=== PATIENT | male | born 1930 | race Caucasian/White ===

== ENCOUNTER → 2019-12-08 | Outpatient (CLI) | payer OTHER, MEDICARE ==
[~2019-12-08] MED LIST: ALLOPURINOL 30300 M2 PO; ASPIR 8181 MG PO; ATORVASTATIN CA40 MG PO; BENAZEPRIL HCL20 MG PO; CELEXA20 MG PO; MOBIC7.5 MG PO; NORVASC5 MG PO; NOVOLIN N100 UNIT/1 SQ; NOVOLIN R100 UNIT/1 SQ; TRAMADOL 50 MG50 MG PO; VITAMIN B-12500 MCG PO; VITAMIN D1000 UNI1 PO
== END ==
LOC: SJCVC 13:40
DX: R00.1 Bradycardia, unspecified (principal); I25.10 Atherosclerotic heart disease of native coronary artery without angina pectoris; I48.0 Paroxysmal atrial fibrillation; E11.22 Type 2 diabetes mellitus with diabetic chronic kidney disease; I12.9 Hypertensive chronic kidney disease with stage 1 through stage 4 chronic kidney disease, or unspecified chronic kidney disease; N18.9 Chronic kidney disease, unspecified; I65.23 Occlusion and stenosis of bilateral carotid arteries; E78.5 Hyperlipidemia, unspecified; G47.33 Obstructive sleep apnea (adult) (pediatric); Z79.4 Long term (current) use of insulin

== ENCOUNTER → 2020-05-18 | Outpatient (CLI) | payer OTHER, MEDICARE | LOC: SJCVCIMAG 02-25 12:02 | PROVIDERS: ATTEND Internal Medicine | DX: I65.23 Occlusion and stenosis of bilateral carotid arteries (principal); R94.31 Abnormal electrocardiogram [ECG] [EKG]; I25.810 Atherosclerosis of coronary artery bypass graft(s) without angina pectoris; I48.0 Paroxysmal atrial fibrillation; E78.5 Hyperlipidemia, unspecified; I12.9 Hypertensive chronic kidney disease with stage 1 through stage 4 chronic kidney disease, or unspecified chronic kidney disease; E11.22 Type 2 diabetes mellitus with diabetic chronic kidney disease; N18.9 Chronic kidney disease, unspecified; K55.1 Chronic vascular disorders of intestine; G47.33 Obstructive sleep apnea (adult) (pediatric); Z79.4 Long term (current) use of insulin; Z95.1 Presence of aortocoronary bypass graft; Z79.899 Other long term (current) drug therapy; Z87.891 Personal history of nicotine dependence ==

== ENCOUNTER → 2020-06-03 | Outpatient (CLI) | payer OTHER, MEDICARE | LOC: SJCVCIMAG 08:06 | PROVIDERS: ATTEND Internal Medicine | DX: K55.1 Chronic vascular disorders of intestine (principal); I77.1 Stricture of artery ==

== ENCOUNTER → 2020-06-04 | Outpatient (CLI) | payer OTHER, MEDICARE ==
[~2020-06-04] MED LIST changes: +CREON DR 36,001 EACH PO; +ELIQUIS5 MG PO; +LEXAPRO20 MG PO; +POTASSIUM GLUC500 MG PO
== END ==
LOC: SJCVC 12:59
PROVIDERS: ATTEND Nuclear Medicine Nuclear Cardiology
DX: I73.9 Peripheral vascular disease, unspecified (principal); K55.1 Chronic vascular disorders of intestine; I25.810 Atherosclerosis of coronary artery bypass graft(s) without angina pectoris; I48.0 Paroxysmal atrial fibrillation; I12.9 Hypertensive chronic kidney disease with stage 1 through stage 4 chronic kidney disease, or unspecified chronic kidney disease; E11.22 Type 2 diabetes mellitus with diabetic chronic kidney disease; N18.9 Chronic kidney disease, unspecified; E78.00 Pure hypercholesterolemia, unspecified; E78.5 Hyperlipidemia, unspecified; Z95.1 Presence of aortocoronary bypass graft; Z79.4 Long term (current) use of insulin; Z79.899 Other long term (current) drug therapy; Z87.891 Personal history of nicotine dependence

== ENCOUNTER → 2020-06-10 | Outpatient (CLI) | payer OTHER, MEDICARE ==
[~2020-06-10] VITALS: Ht 167.6 cm; Wt 65.3 kg
[2020-06-10 08:24] VITALS: BP 125/48
[2020-06-10 08:49] LABS: HEMATOCRIT 32.6 % (42.0-52.0); HEMOGLOBIN 10.9 gm/dL (14.0-18.0); MCH 31.3 pg (26.0-34.0); MCHC 33.4 g/dL (28.0-37.0); MCV 93.7 fL (80.0-100.0); RBC 3.48 mil/uL (4.50-6.00); RDW 15.5 % (10.5-14.5); WBC 5.9 thou/uL (4.0-11.0)
[2020-06-10 09:06] LABS: CALCIUM 8.9 mg/dL (8.5-10.1); CREATININE 1.5 mg/dL (0.7-1.3); POTASSIUM 4.7 mmol/L (3.5-5.1)
== END | disposition home or self-care (01) ==
LOC: CATH 08:18 → EDSTATUS 11:20 → CATH 11:25
PROVIDERS: ATTEND Nuclear Medicine Nuclear Cardiology
DX: K55.1 Chronic vascular disorders of intestine (principal); K55.059 Acute (reversible) ischemia of intestine, part and extent unspecified; I70.1 Atherosclerosis of renal artery; I73.9 Peripheral vascular disease, unspecified; I77.4 Celiac artery compression syndrome; I12.9 Hypertensive chronic kidney disease with stage 1 through stage 4 chronic kidney disease, or unspecified chronic kidney disease; E11.22 Type 2 diabetes mellitus with diabetic chronic kidney disease; N18.9 Chronic kidney disease, unspecified; G47.30 Sleep apnea, unspecified; E78.5 Hyperlipidemia, unspecified; Z98.890 Other specified postprocedural states; Z79.899 Other long term (current) drug therapy; Z98.41 Cataract extraction status, right eye; Z98.42 Cataract extraction status, left eye; Z95.1 Presence of aortocoronary bypass graft; Z79.4 Long term (current) use of insulin

== ENCOUNTER → 2020-10-12 | Outpatient (CLI) | payer OTHER, MEDICARE | LOC: SJCVCIMAG 08:15 | PROVIDERS: ATTEND Nuclear Medicine Nuclear Cardiology | DX: K55.1 Chronic vascular disorders of intestine (principal); I77.9 Disorder of arteries and arterioles, unspecified; I25.10 Atherosclerotic heart disease of native coronary artery without angina pectoris; I48.0 Paroxysmal atrial fibrillation; I13.10 Hypertensive heart and chronic kidney disease without heart failure, with stage 1 through stage 4 chronic kidney disease, or unspecified chronic kidney disease; N18.9 Chronic kidney disease, unspecified; E78.00 Pure hypercholesterolemia, unspecified; E11.9 Type 2 diabetes mellitus without complications ==

== ENCOUNTER → 2020-11-18 | Outpatient (CLI) | payer OTHER, MEDICARE | LOC: SJCVC 10:45 | PROVIDERS: ATTEND Internal Medicine | DX: R94.31 Abnormal electrocardiogram [ECG] [EKG] (principal); I65.23 Occlusion and stenosis of bilateral carotid arteries; I25.10 Atherosclerotic heart disease of native coronary artery without angina pectoris; I48.0 Paroxysmal atrial fibrillation; E78.5 Hyperlipidemia, unspecified; K55.1 Chronic vascular disorders of intestine; E11.22 Type 2 diabetes mellitus with diabetic chronic kidney disease; I12.9 Hypertensive chronic kidney disease with stage 1 through stage 4 chronic kidney disease, or unspecified chronic kidney disease; N18.9 Chronic kidney disease, unspecified; G47.30 Sleep apnea, unspecified; Z79.4 Long term (current) use of insulin; Z79.899 Other long term (current) drug therapy; Z87.891 Personal history of nicotine dependence; Z72.89 Other problems related to lifestyle ==

== ENCOUNTER → 2021-04-12 | Outpatient (CLI) | payer OTHER, MEDICARE | LOC: SJCVC 10:41 | PROVIDERS: ATTEND Nuclear Medicine Nuclear Cardiology | DX: I25.10 Atherosclerotic heart disease of native coronary artery without angina pectoris (principal); I77.9 Disorder of arteries and arterioles, unspecified; I12.9 Hypertensive chronic kidney disease with stage 1 through stage 4 chronic kidney disease, or unspecified chronic kidney disease; E11.22 Type 2 diabetes mellitus with diabetic chronic kidney disease; N18.9 Chronic kidney disease, unspecified; K55.1 Chronic vascular disorders of intestine; E78.00 Pure hypercholesterolemia, unspecified; G47.30 Sleep apnea, unspecified; Z79.4 Long term (current) use of insulin; Z79.899 Other long term (current) drug therapy; Z87.891 Personal history of nicotine dependence ==

== ENCOUNTER → 2021-06-27 | Outpatient (CLI) | payer OTHER, MEDICARE | LOC: SJCVCIMAG 09:09 | PROVIDERS: ATTEND Internal Medicine | DX: R94.31 Abnormal electrocardiogram [ECG] [EKG] (principal); I08.3 Combined rheumatic disorders of mitral, aortic and tricuspid valves; I48.91 Unspecified atrial fibrillation; I65.23 Occlusion and stenosis of bilateral carotid arteries; I70.8 Atherosclerosis of other arteries; I25.10 Atherosclerotic heart disease of native coronary artery without angina pectoris; E11.22 Type 2 diabetes mellitus with diabetic chronic kidney disease; N18.32 Chronic kidney disease, stage 3b; I13.0 Hypertensive heart and chronic kidney disease with heart failure and stage 1 through stage 4 chronic kidney disease, or unspecified chronic kidney disease; I50.22 Chronic systolic (congestive) heart failure; E78.5 Hyperlipidemia, unspecified; K55.1 Chronic vascular disorders of intestine; Z79.4 Long term (current) use of insulin; Z87.891 Personal history of nicotine dependence; Z72.89 Other problems related to lifestyle; Z79.899 Other long term (current) drug therapy ==